=== PATIENT | female | born 1945 | race Caucasian/White ===

== ENCOUNTER → 2019-02-12 11:10 | Outpatient (CLI) | payer MEDICARE, OTHER ==
--- NOTE | 2019-02-14 14:04 | EC ---
PATIENT:MARTITA HYDE DATE OF SERVICE: 02/12/19 SEX: F MEDICAL RECORD: [id number] DATE OF : [birth year] [facility] AGE OF PATIENT: 73 ADMISSION DATE: 02/12/19 REFERRING PHYSICIAN: INTERPRETING PHYSICIAN: RYAN ALMEIDA MD ECHOCARDIOGRAM REPORT ECHO CHARGES 4 ECHO COMPLETE Date: 02/12/19 CLINICAL DIAGNOSIS: MR/TR H/O HTN ECHOCARDIOGRAPHIC MEASUREMENTS (adult normal given) AC root (d.<3.7cm) 2.8 cm LV Septum d (<1.2 cm> 0.9 cm Valve Excursion 2.0 cm LV Septum (systole) 1.4 cm Left Atria (s.<4.0cm> 3.6 cm LVPW d(<1.2cm) 0.8 cm RV (d.<2.3cm) 2.5 cm LVPW (sytole) 1.5 cm LV diastole(<5.6CM) 5.3 cm MV E-F(>70mm/sec) cm LV systole 2.9 cm LVOT Diameter 1.9 cm MV exc.(>10mm) cm Est.ejection fraction (50-75%) % DOPPLER: LVIT cm/sec A 62.0 cm/sec E 87.0 cm/sec LA cm/sec RVSP 42.0 mmHg LVOT 123 cm/sec AOP1/2T m/s Asc. Ao 152 cm/sec RVOT 67.0 cm/sec RA cm/sec PA 103 cm/sec AV Gradient Peak 9.2 mmHg AV Mean 4.8 mmHg AV Area 2.0 cm MV Gradient Peak 4.6 mmHg MV Mean 1.8 mmHg MV Area cm COMMENTS: OP - HC Canvas Repairer: Leo BLANCO BOWDON Uniform Maker: 1 Dr. Almeida TAPE# PACS Pericardial Effusion N DATE OF SERVICE: ECHOCARDIOGRAM FINDINGS: 1. Left ventricular chamber size is within normal limits. Left ventricular systolic function is normal at 55% to 60%. 2. Left atrium is within normal limits at 3.6 cm. Right atrium and right ventricle chamber sizes are mildly dilated. 3. Valvular structures have normal structure and motion. ECHOCARDIOGRAM REPORT [id number] MARTITA HYDE 4. Doppler interrogation reveals moderate mitral regurgitation, moderate tricuspid regurgitation, no other valvular insufficiency or stenosis. Pulmonary systolic pressure is estimated at 42 mmHg. 5. No evidence of pericardial effusion or left ventricular thrombus. TRANSINT:[id number] Voice Confirmation ID: [id number] DOCUMENT ID: [id number] RYAN ALMEIDA MD at 1404 CC: [id number] DICTATION DATE: 02/13/19 1013 PERFORMANCE IMPROVEMENT MANAGER: 02/13/19 1312 DEP CLI 02/12/19 [place] [id number] [place] [id number]
== END | disposition home or self-care (01) ==
LOC: D.HCCECHO 11:00
PROVIDERS: ATTEND Internal Medicine Interventional Cardiology
DX: I34.0 Nonrheumatic mitral (valve) insufficiency (principal)